=== PATIENT | male | born 1945 | race Caucasian/White ===

== ENCOUNTER 2020-02-17 18:04 | Emergency (ER) | payer MEDICARE ==
[~2020-02-17] VITALS: Ht 188 cm; Wt 86.8 kg
[2020-02-17 18:07] VITALS: BP 170/110
== END 2020-02-17 18:51 | disposition home or self-care (01) ==
LOC: ER 18:05
DX: R13.10 Dysphagia, unspecified (principal); I10 Essential (primary) hypertension; Z98.890 Other specified postprocedural states; Z72.89 Other problems related to lifestyle
CPT/HCPCS: 99284